=== PATIENT | male | born 1965 | race Caucasian/White ===

== ENCOUNTER → 2016-05-01 | Outpatient (CLI) | payer OTHER ==
--- NOTE | 2016-05-02 07:33 | RADIOLOGY REPORT PS360 ---
MRI-BRAIN W/WO HISTORY: Sinusitis, bilateral tinnitus greater on the left with chronic headache and asymmetric hearing loss, history of sinus cancer TINNITUS, RT EAR ORDERING PHYSICIAN: NATHANIEL LOPEZ PATIENT AGE: 50 years COMPARISON: 06/05/2009 MRI TECHNIQUE: Standard multiplanar multiecho sequences are performed without and with gadolinium enhancement . In addition, thin section pre and post enhanced axial T1 improved post and coronal T1-weighted images are obtained of the cerebellopontine angles FINDINGS: The cerebellopontine angles, cerebellum, and brainstem have an unremarkable appearance. No enhancing CP angle masses are evident. There is a left mastoid effusion.. No midline shift, mass effect, intracranial hemorrhage, or hydrocephalus is evident. Extensive postsurgical changes are present in the nasal canal with interval removal of the nasal turbinates, medial bailey of the maxillary sinuses, anterior bailey of the sphenoid sinuses, and ethmoid sinuses. Nasal septum is missing except for the most anterior aspect. Small air-fluid levels present within the sphenoid sinus region. 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 There is an oval area of decreased T1 and T2 intensity along the posterior aspect of the right orbit probably related to an area of bony hypertrophy at the sphenoid wing. This does not demonstrate contrast enhancement. There are encephalomalacia changes involving the anterior aspect of the Alonso rectus bilaterally the frontal sinuses are opacified with some heterogeneous signal within the frontal sinuses which could be related to chronic sinusitis. Small fluid collection along the floor of the left frontal lobe at 15 mm which may be postsurgical. There are no previous MRIs available for comparison to determine acute or chronic. IMPRESSION: 1. Extensive postsurgical changes of the nasal canal with interval removal of the large nasal canal mass. No obvious residual neoplasm. 2. Encephalomalacic changes of the frontal lobes 3. No evidence of cerebellopontine angle mass. 4. Left mastoid sinus effusions
== END ==
LOC: RAD 10:23
DX: H93.11 Tinnitus, right ear (principal)
CPT/HCPCS: A9576